=== PATIENT | male | born 1955 | race Caucasian/White ===

== ENCOUNTER 2022-07-04 13:54 | Outpatient (CLI) | payer MEDICARE, OTHER ==
[2022-07-04 15:11] LABS: BASOPHILS % (AUTO) 0.6 % (0.0-2.0); EOSINOPHILS % (AUTO) 2.9 % (0.0-6.0); HEMATOCRIT 37 % (39-51); HEMOGLOBIN 12.3 g/dL (13.5-17.5); LYMPHOCYTES # (AUTO) 1.6 K/uL (0.8-4.8); LYMPHOCYTES % (AUTO) 32.1 % (20.0-44.0); MEAN CORPUSCULAR HGB CONC 33 g/dl (31.0-36.0); MEAN CORPUSCULAR VOLUME 93 fL (80-96); MONOCYTES # (AUTO) 0.5 K/uL (0.1-1.30); MONOCYTES % (AUTO) 10.7 % (2.0-12.0); NEUTROPHILS # (AUTO) 2.7 K/uL (1.8-8.9); NEUTROPHILS % (AUTO) 53.7 % (43.0-81.0); PLATELET COUNT (AUTO) 293 K/uL (150-450); RED BLOOD CELL COUNT(AUTO) 3.97 MIL/uL (4.5-6.0); WHITE BLOOD COUNT (AUTO) 5.1 K/uL (4.3-11.0)
[2022-07-04 15:37] LABS: BILIRUBIN,URINE NEGATIVE (NEGATIVE); COLOR,URINE YELLOW (YELLOW); LEUKOCYTE ESTERASE ,URINE NEGATIVE (NEGATIVE); NITRITE, URINE NEGATIVE (NEGATIVE); PROTEIN,URINE TRACE mg/dl (NEGATIVE); UGLUCOSE 2+ mg/dL (NEGATIVE); UROBILINOGEN,URINE 0.2 EU/dL (0.2)
[2022-07-04 15:38] LABS: CALCIUM, SERUM 9.4 mg/dL (8.5-10.1); POTASSIUM 3.8 mmol/L (3.5-5.1)
[2022-07-04 16:16] LABS: BACTERIA,URINE None seen /HPF (None Seen); SQUAMOUS EPITHELIAL CELL,UR 0-2 /HPF (None Seen); WBC,URINE 0-2 /HPF (0-3)
[2022-07-04 16:17] LABS: MUCUS,URINE Few /LPF (None Seen)
== END 2022-07-04 23:59 | disposition home or self-care (01) ==
LOC: LAB 13:54
PROVIDERS: ATTEND Internal Medicine Pulmonary Disease
DX: Z01.818 Encounter for other preprocedural examination (principal); R94.31 Abnormal electrocardiogram [ECG] [EKG]
CPT/HCPCS: 36415; 71045-TC; 80048-TC; 81001; 85025-TC; 85730-TC

== ENCOUNTER 2022-07-16 11:06 | Outpatient (CLI) | payer MEDICARE, OTHER | END 2022-07-16 23:59 | disposition home or self-care (01) | LOC: LAB 11:06 | PROVIDERS: ATTEND Dentist Oral and Maxillofacial Surgery | DX: Z01.812 Encounter for preprocedural laboratory examination (principal); Z20.822 Contact with and (suspected) exposure to COVID-19 | CPT/HCPCS: U0003; C9803 ==

== ENCOUNTER 2022-12-21 08:31 | Inpatient (IN) | payer MEDICARE, OTHER ==
[~2022-12-21] VITALS: Ht 182.9 cm; Wt 78.0 kg
[2022-12-21] MEDS ORDERED: ACET1TAB91 PO (10:00)
[2022-12-21 10:30] VITALS: BP 132/93; TEMP 98.6; O2SAT 96
[2022-12-21] MEDS ORDERED: VANCOMYCIN 1 GM VIAL ONE (12:16)
[2022-12-21] MEDS ORDERED: LIDOCAINE 2%-EPI 1:100,000 30 ML VIAL ONE (12:16)
[2022-12-21] MEDS ORDERED: dexaMETHasone SOD PHOSPHATE 10 MG/ML VIAL ONE (12:17)
[2022-12-21 14:30] VITALS: BP 150/82; TEMP 97.6; O2SAT 93
[2022-12-21] MEDS ORDERED: ONDANSETRON HCL/PF 4 MG/2 ML VIAL IV PRN (15:00)
[2022-12-21] MEDS ORDERED: ACETAMINOPHEN 325 MG TABLET PO PRN ×2 (15:00→16:00)
[2022-12-21] MEDS ORDERED: IV NS 0.9% 1,000 ML IV PRN ×2 (15:00→16:00)
[2022-12-21] MEDS ORDERED: HYDROMORPHONE 1 MG/1 ML DISP.SYRIN IV PRN (15:00)
[2022-12-21] MEDS ORDERED: ONDANSETRON HCL/PF 4 MG/2 ML VIAL IVP PRN (16:00)
[2022-12-21] MEDS ORDERED: Z GUARD REMEDY 4 OZ OINT TP PRN (16:00)
[2022-12-21] MEDS ORDERED: MAG HYDROX/AL HYDROX/SIMETH 30 ML UDC PO PRN (16:00)
[2022-12-21] MEDS ORDERED: MORPHINE SULFATE INJ 2 MG/ML DISP.SYRIN IV PRN (16:00)
[2022-12-21] MEDS ORDERED: MAGNESIUM HYDROXIDE 30 ML UDC PO PRN (16:00)
[2022-12-21] MEDS ORDERED: ZOLPIDEM TARTRATE 5 MG TABLET PO PRN (16:00)
== END 2022-12-21 16:09 | disposition left against medical advice (07) | DRG 497 ==
LOC: DS 08:31 → TELE 14:35
PROVIDERS: ADMIT Nurse Practitioner Acute Care; ATTEND Nurse Practitioner Acute Care
PROC: 0NPW04Z Removal of Internal Fixation Device from Facial Bone, Open Approach (ICD-10-PCS; principal; 2022-12-21)
PROC: 0N5T0ZZ Destruction of Right Mandible, Open Approach (ICD-10-PCS; 2022-12-21)
PROC: 0WB30ZZ Excision of Oral Cavity and Throat, Open Approach (ICD-10-PCS; 2022-12-21)
DX: T84.69XA Infection and inflammatory reaction due to internal fixation device of other site, initial encounter (principal); K12.30 Oral mucositis (ulcerative), unspecified
CPT/HCPCS: 88305-TC; 88311-TC; 88312-TC; G0378; J0461; J1100; J1885; J2370; J2405; J2704; J3370; J3490

== ENCOUNTER 2024-07-13 08:40 | Inpatient (IN) | payer MEDICARE, OTHER ==
[~2024-07-13] VITALS: Ht 182.9 cm; Wt 88.0 kg
[~2024-07-13 08:40] MED LIST: ACET1TAB91 PO
[2024-07-13] MEDS ORDERED: FENTANYL PF 100MCG/2ML AMPUL ONE (11:25)
[2024-07-13] MEDS ORDERED: MIDAZOLAM HCL 2 MG/2ML VIAL ONE (11:26)
[2024-07-13] MEDS ORDERED: VANCOMYCIN 1 GM VIAL ONE (11:38)
[2024-07-13] MEDS ORDERED: dexaMETHasone SOD PHOSPHATE 1 ML ONE (11:38)
[2024-07-13] MEDS ORDERED: LIDOCAINE 2%-EPI 1:100,000 30 ML VIAL ONE (11:38)
[2024-07-13 16:00] VITALS: BP 116/73; TEMP 98.1; O2SAT 96
[2024-07-13] MEDS ORDERED: DILT180C66 PO (16:25)
[2024-07-13] MEDS ORDERED: ROSU40TA23 PO (16:25)
[2024-07-13] MEDS ORDERED: METF-881 PO (16:25)
[2024-07-13] MEDS ORDERED: OLME20TA23 PO (16:25)
[2024-07-13] MEDS ORDERED: MAG HYDROX/AL HYDROX/SIMETH 30 ML UDC PO PRN (16:30)
[2024-07-13] MEDS ORDERED: ONDANSETRON HCL/PF 4 MG/2 ML VIAL IVP PRN (16:30)
[2024-07-13] MEDS ORDERED: Z GUARD REMEDY 4 OZ OINT TP PRN (16:30)
[2024-07-13] MEDS ORDERED: ACETAMINOPHEN 325 MG TABLET PO PRN (16:30)
[2024-07-13] MEDS ORDERED: MAGNESIUM HYDROXIDE 30 ML UDC PO PRN (16:30)
[2024-07-13] MEDS ORDERED: ONDANSETRON HCL/PF 4 MG/2 ML VIAL IV PRN (18:30)
[2024-07-13] MEDS ORDERED: IV NS 0.9% 1,000 ML IV PRN (18:30)
[2024-07-13 20:00] VITALS: BP 112/61; TEMP 98.3; O2SAT 96
[2024-07-13] MEDS: TRAZODONE 50 MG TABLET PO PRN (22:18)
[2024-07-13] MEDS: VANCOMYCIN 1 GM in IV D5W 250ml IV SCH (22:18)
[2024-07-13] MEDS: TRAZODONE 50 MG TABLET PO ONE (23:48)
[2024-07-14] MEDS: HYDROMORPHONE 1 MG/1 ML DISP.SYRIN IV PRN (00:41)
[2024-07-14 06:41] LABS: BASOPHILS % (AUTO) 0.1 % (0.0-2.0); HEMATOCRIT 35 % (39-51); HEMOGLOBIN 11.8 g/dL (13.5-17.5); LYMPHOCYTES % (AUTO) 13.5 % (20.0-44.0); MEAN CORPUSCULAR HEMOGLOBIN 31 PG (26.0-33.0); MEAN CORPUSCULAR HGB CONC 34 g/dl (31.0-36.0); MEAN CORPUSCULAR VOLUME 92 fL (80-96); MONOCYTES # (AUTO) 0.3 K/uL (0.1-1.30); MONOCYTES % (AUTO) 4.4 % (2.0-12.0); NEUTROPHILS # (AUTO) 5.9 K/uL (1.8-8.9); PLATELET COUNT (AUTO) 228 K/uL (150-450); RED BLOOD CELL COUNT(AUTO) 3.79 MIL/uL (4.5-6.0); RED CELL DISTRIBUTION WIDTH 12.4 % (11.5-15.0); WHITE BLOOD COUNT (AUTO) 7.2 K/uL (4.3-11.0)
[2024-07-14 07:40] LABS: CREATININE 1.3 mg/dL (0.6-1.3); PHOSPHORUS 2.9 mg/dL (2.5-4.9); POTASSIUM 4.4 mmol/L (3.5-5.1)
[2024-07-14 08:00] VITALS: BP 134/55; TEMP 97.3; O2SAT 96
== END 2024-07-14 10:23 | disposition home or self-care (01) | DRG 141 ==
LOC: DS 08:40 → MED 14:53
PROVIDERS: ADMIT Internal Medicine; ATTEND Internal Medicine
PROC: 0N5R0ZZ Destruction of Maxilla, Open Approach (ICD-10-PCS; 2024-07-13)
PROC: 0NUR07Z Supplement Maxilla with Autologous Tissue Substitute, Open Approach (ICD-10-PCS; 2024-07-13)
PROC: 0NSR0ZZ Reposition Maxilla, Open Approach (ICD-10-PCS; principal; 2024-07-13 11:05)
DX: S02.40DB Maxillary fracture, left side, initial encounter for open fracture (principal); M87.9 Osteonecrosis, unspecified; M27.2 Inflammatory conditions of jaws; D16.4 Benign neoplasm of bones of skull and face; Z98.890 Other specified postprocedural states; E11.65 Type 2 diabetes mellitus with hyperglycemia; E11.69 Type 2 diabetes mellitus with other specified complication; M27.40 Unspecified cyst of jaw; I10 Essential (primary) hypertension; E78.5 Hyperlipidemia, unspecified; I08.0 Rheumatic disorders of both mitral and aortic valves; W19.XXXA Unspecified fall, initial encounter; Y92.9 Unspecified place or not applicable
CPT/HCPCS: 36415; 80048-TC; 82962-TC; 83735-TC; 84100-TC; 85025-TC; 87081-TC; A4223; A4338; G0378; J0330; J1100; J1171; J1885; J2250; J2405; J2704; J3010; J3370; J3490; J7060

== ENCOUNTER 2024-12-17 08:48 | Inpatient (IN) | payer MEDICARE, OTHER ==
[~2024-12-17] VITALS: Ht 182.9 cm; Wt 80.7 kg
[~2024-12-17 08:48] MED LIST changes: -ACET1TAB91 PO; +DILT180C66 PO; +METF-881 PO; +OLME20TA23 PO; +ROSU40TA23 PO
[2024-12-17] MEDS ORDERED: LIDOCAINE 2%-EPI 1:100,000 30 ML VIAL ONE (09:32)
[2024-12-17] MEDS ORDERED: FENTANYL PF 100MCG/2ML AMPUL ONE (10:02)
[2024-12-17] MEDS ORDERED: MIDAZOLAM HCL 2 MG/2ML VIAL ONE (10:02)
[2024-12-17] MEDS ORDERED: FAMOTIDINE/PF INJ 20 MG/2 ML VIAL IV ONE (10:02)
[2024-12-17] MEDS ORDERED: SUGAMMADEX SODIUM 200 MG/2 ML VIAL IV ONE (10:26)
[2024-12-17] MEDS ORDERED: ROCURONIUM BROMIDE 50 MG/5 ML ONE (10:27)
[2024-12-17] MEDS ORDERED: dexaMETHasone SOD PHOSPHATE 1 ML ONE (10:27)
[2024-12-17] MEDS ORDERED: HYDROMORPHONE 1 MG/1 ML DISP.SYRIN ONE (11:14)
[2024-12-17] MEDS ORDERED: ACETAMINOPHEN 325 MG TABLET PO PRN ×2 (12:00→16:00)
[2024-12-17] MEDS ORDERED: ONDANSETRON HCL/PF 4 MG/2 ML VIAL IVP PRN ×2 (12:30→16:00)
[2024-12-17] MEDS ORDERED: HYDROMORPHONE 1 MG/1 ML DISP.SYRIN IV PRN (12:30)
[2024-12-17] MEDS: IV NS 0.9% 1,000 ML IV PRN (13:32)
[2024-12-17] MEDS ORDERED: NIAC-5 PO (13:45)
[2024-12-17 16:00] VITALS: BP 152/92; TEMP 97.5; O2SAT 96
[2024-12-17] MEDS ORDERED: TRAMADOL HCL 50 MG TABLET PO PRN (16:00)
[2024-12-17] MEDS ORDERED: MAGNESIUM HYDROXIDE 30 ML UDC PO PRN (16:00)
[2024-12-17] MEDS ORDERED: MAG HYDROX/AL HYDROX/SIMETH 30 ML UDC PO PRN (16:00)
[2024-12-17 17:19] LABS: CALCIUM, SERUM 9.0 mg/dL (8.5-10.1); CREATININE 1.6 mg/dL (0.6-1.3); SODIUM SERUM 137.0 mmol/L (136-145); UREA NITROGEN, BLOOD 21.0 mg/dL (7-18)
[2024-12-17] MEDS: BLOOD SUGAR DIAGNOSTIC 1 EACH STRIP IN SCH (17:59)
[2024-12-17] MEDS: INSULIN REGULAR, HUMAN 100 UNIT/ML 3 ML VIAL SQ PRN (18:00)
[2024-12-17] MEDS ORDERED: DEXTROSE 50%-WATER 50 ML DISP.SYRIN IV PRN (18:00)
[2024-12-17] MEDS: METFORMIN XR 500 MG TAB.SR.24H PO SCH (18:01)
[2024-12-17 20:00] VITALS: BP_SYST 16; BP_SYST 163; BP_DIAS 96; TEMP 98.6; O2SAT 96
[2024-12-17] MEDS: VANCOMYCIN 1 GM in IV D5W 250ml IV SCH (21:02)
[2024-12-17] MEDS: ATORVASTATIN 40 MG TABLET PO SCH (21:05)
[2024-12-18 05:44] LABS: PLATELET COUNT (AUTO) 60 K/uL (150-450); RED BLOOD CELL COUNT(AUTO) 2.57 MIL/uL (4.5-6.0); RED CELL DISTRIBUTION WIDTH 14.1 % (11.5-15.0); WHITE BLOOD COUNT (AUTO) 4.4 K/uL (4.3-11.0)
[2024-12-18 06:04] LABS: CALCIUM, SERUM 8.0 mg/dL (8.5-10.1); CREATININE 0.8 mg/dL (0.6-1.3); PHOSPHORUS 2.9 mg/dL (2.5-4.9); SODIUM SERUM 142.0 mmol/L (136-145); UREA NITROGEN, BLOOD 3.0 mg/dL (7-18)
[2024-12-18 06:12] LABS: LYMPHOCYTES % (MANUAL) 17 % (16-48); NEUTROPHILS % (MANUAL) 71 (42-76)
[2024-12-18 06:13] LABS: EOSINOPHILS % (MANUAL) 4 % (0-4); MONOCYTES % (MANUAL) 8 % (0-11.0); PLATELET ESTIMATE DECREASED
[2024-12-18 08:00] VITALS: BP 116/79; TEMP 98.2; O2SAT 97
[2024-12-18] MEDS ORDERED: NIACIN EXT TAB (500MG) 500 MG TABLET.SA PO SCH (09:00)
[2024-12-18 09:21] VITALS: BP 116/79
[2024-12-18] MEDS: DILTIAZEM HCL CD 180 MG PO SCH (09:21)
[2024-12-18] MEDS: LOSARTAN POTASSIUM 50 MG TABLET PO SCH (09:21)
[2024-12-18] MEDS: MAGNESIUM OXIDE 400 MG TABLET PO ONE (09:22)
== END 2024-12-18 11:40 | disposition home or self-care (01) | DRG 908 ==
LOC: DS 08:48 → MED 12:09
PROVIDERS: ADMIT Nurse Practitioner Family; ATTEND Nurse Practitioner Family
PROC: 0N5R0ZZ Destruction of Maxilla, Open Approach (ICD-10-PCS; 2024-12-17)
PROC: 0N5V0ZZ Destruction of Left Mandible, Open Approach (ICD-10-PCS; 2024-12-17)
PROC: 0NUR07Z Supplement Maxilla with Autologous Tissue Substitute, Open Approach (ICD-10-PCS; 2024-12-17)
PROC: 09UR07Z Supplement Left Maxillary Sinus with Autologous Tissue Substitute, Open Approach (ICD-10-PCS; 2024-12-17)
PROC: 0NSV0ZZ Reposition Left Mandible, Open Approach (ICD-10-PCS; 2024-12-17)
PROC: 0NUV07Z Supplement Left Mandible with Autologous Tissue Substitute, Open Approach (ICD-10-PCS; 2024-12-17)
PROC: 0NSR04Z Reposition Maxilla with Internal Fixation Device, Open Approach (ICD-10-PCS; principal; 2024-12-17 10:15)
DX: T86.831 Bone graft failure (principal); M87.9 Osteonecrosis, unspecified; S02.40DK Maxillary fracture, left side, subsequent encounter for fracture with nonunion; S02.609K Fracture of mandible, unspecified, subsequent encounter for fracture with nonunion; M27.2 Inflammatory conditions of jaws; E78.5 Hyperlipidemia, unspecified; I10 Essential (primary) hypertension; Y92.009 Unspecified place in unspecified non-institutional (private) residence as the place of occurrence of the external cause; D16.5 Benign neoplasm of lower jaw bone; D16.4 Benign neoplasm of bones of skull and face; D64.9 Anemia, unspecified; E11.69 Type 2 diabetes mellitus with other specified complication; E11.65 Type 2 diabetes mellitus with hyperglycemia; E83.42 Hypomagnesemia; Y83.2 Surgical operation with anastomosis, bypass or graft as the cause of abnormal reaction of the patient, or of later complication, without mention of misadventure at the time of the procedure
CPT/HCPCS: 36415; 80048-TC; 82962-TC; 83735-TC; 84100-TC; 85027-TC; 88305-TC; 88311-TC; A4223; A4338; C1713; G0378; J1100; J1171; J1308; J1815; J2250; J2405; J2704; J3010; J3373; J3490; J7030; J7040; J7060